=== PATIENT | male | born 1960 | race Caucasian/White ===

== ENCOUNTER 2016-12-17 11:48 | Emergency (ER) | payer OTHER ==
[~2016-12-17] VITALS: Ht 172.7 cm; Wt 88.5 kg
[~2016-12-17 11:48] MED LIST: INDOCIN25 MG PO; INDOCIN50 MG PO; NAPROSYN500 MG PO; NO DAILY MEDS; POLYTRIM 1000010 ML OPH; VICODIN 5/500 505 MG PO; Vicodin 5/500 505 MG PO
[2016-12-17] MEDS ORDERED: LEVOTHYROXIN0.075 M1 PO (12:04)
[2016-12-17] MEDS ORDERED: AMOXICILLIN500 M2 PO (12:04)
[2016-12-17] MEDS ORDERED: MELOXICAM7.5 MG PO (12:04)
[2016-12-17] MEDS ORDERED: CYCLOBENZAPRINE5 M3 PO (14:43)
== END 2016-12-17 14:47 | disposition home or self-care (01) ==
LOC: ED 11:48
DX: M54.5 Low back pain (principal); F17.200 Nicotine dependence, unspecified, uncomplicated; Z88.1 Allergy status to other antibiotic agents

== ENCOUNTER → 2018-11-29 | Outpatient (CLI) | payer OTHER ==
[~2018-11-29] MED LIST changes: +AMOXICILLIN500 M2 PO; +CYCLOBENZAPRINE5 M3 PO; +LEVOTHYROXIN0.075 M1 PO; +MELOXICAM7.5 MG PO
[2018-11-29 08:46] LABS: BASO % 0.5 % (0.0-1.0); EOS # 0.2 10*3/uL (0.0-0.4); EOS % 2.6 % (1.0-4.0); HEMATOCRIT 48.2 % (42.0-52.0); HEMOGLOBIN 16.3 g/dl (14.0-18.0); LYMPH % 26.6 % (27.0-41.0); MEAN CELL VOLUME 95.8 fl (80.0-94.0); MEAN CORPUSCULAR HGB 32.4 pg (27.0-31.0); MEAN CORPUSCULAR HGB CONC 33.8 g/dl (33.0-37.0); MEAN PLATELET VOLUME 10.8 fl (9.6-12.3); MONO # 0.5 10*3/uL (0.1-1.0); MONO % 6.7 % (3.0-9.0); NEUT # 4.8 10*3/uL (2.3-7.9); NEUT % 63.2 % (47.0-73.0); PLATELET COUNT AUTOMATED 205 10*3/uL (130-400); RED BLOOD COUNT 5.03 10*6/uL (4.50-5.90); RED CELL DISTRI WIDTH 11.7 % (0-14.5); WHITE BLOOD COUNT 7.6 10*3/uL (4.8-10.8)
[2018-11-29 09:13] LABS: BUN 12 mg/dl (7-24)
[2018-11-29 09:14] LABS: ALBUMIN 4.1 gm/dl (3.1-4.5); ALKALINE PHOSPHATASE 81 U/L (45-117); CHLORIDE 108 mmol/L (98-107); CHOLESTEROL 176 mg/dL (<200); HDL CHOLESTEROL 54 mg/dl (40-60); LDL CHOLESTEROL 108 mg/dL (9-159); POTASSIUM 4.7 mmol/L (3.5-5.1); SGOT/AST 18 IU/L (3-35); SGPT/ALT 34 U/L (12-78); SODIUM 142 mmol/L (136-145); TOTAL PROTEIN 7.8 gm/dL (6.4-8.2); TRIGLYCERIDES 68 mg/dl (<150); VLDL CHOLESTEROL 14 mg/dL (6-40)
[2018-11-29 09:34] LABS: FREE T4 0.91 ng/dl (0.76-1.46)
== END | disposition home or self-care (01) ==
LOC: LAB 08:20
PROVIDERS: Internal Medicine
DX: Z13.9 Encounter for screening, unspecified (principal); T14.8XXA Other injury of unspecified body region, initial encounter; E03.9 Hypothyroidism, unspecified; I10 Essential (primary) hypertension; X58.XXXA Exposure to other specified factors, initial encounter; Y93.89 Activity, other specified; Y92.89 Other specified places as the place of occurrence of the external cause; Y99.8 Other external cause status

== ENCOUNTER → 2018-12-04 | Outpatient (CLI) | payer OTHER | END | disposition home or self-care (01) | LOC: RESCLI 09:18 | DX: I10 Essential (primary) hypertension (principal); E03.9 Hypothyroidism, unspecified; M19.90 Unspecified osteoarthritis, unspecified site ==

== ENCOUNTER → 2019-03-24 | Outpatient (CLI) | payer OTHER | END | disposition home or self-care (01) | LOC: RESCLI 00:10 | DX: M19.90 Unspecified osteoarthritis, unspecified site (principal); I10 Essential (primary) hypertension; E03.9 Hypothyroidism, unspecified; Z72.0 Tobacco use; Z79.899 Other long term (current) drug therapy; Z88.8 Allergy status to other drugs, medicaments and biological substances ==

== ENCOUNTER → 2019-05-01 | Outpatient (CLI) | payer OTHER | END | disposition home or self-care (01) | LOC: RESCLI 00:36 | DX: Z13.9 Encounter for screening, unspecified (principal); E03.9 Hypothyroidism, unspecified; I10 Essential (primary) hypertension; M19.90 Unspecified osteoarthritis, unspecified site; Z79.899 Other long term (current) drug therapy ==

== ENCOUNTER → 2019-06-02 | Outpatient (CLI) | payer OTHER ==
[2019-06-02 09:02] LABS: BASO # 0.1 10*3/uL (0.0-0.1); BASO % 0.9 % (0.0-1.0); EOS # 0.2 10*3/uL (0.0-0.4); HEMATOCRIT 47.4 % (42.0-52.0); HEMOGLOBIN 15.9 g/dl (14.0-18.0); LYMPH # 2.7 10*3/uL (1.3-4.4); LYMPH % 34.4 % (27.0-41.0); MEAN CELL VOLUME 97.1 fl (80.0-94.0); MEAN CORPUSCULAR HGB 32.6 pg (27.0-31.0); MEAN CORPUSCULAR HGB CONC 33.5 g/dl (33.0-37.0); MEAN PLATELET VOLUME 11.5 fl (9.6-12.3); MONO # 0.7 10*3/uL (0.1-1.0); MONO % 9.5 % (3.0-9.0); NEUT % 51.7 % (47.0-73.0); PLATELET COUNT AUTOMATED 194 10*3/uL (130-400); RED BLOOD COUNT 4.88 10*6/uL (4.50-5.90); RED CELL DISTRI WIDTH 11.9 % (0-14.5); WHITE BLOOD COUNT 7.8 10*3/uL (4.8-10.8)
[2019-06-02 09:35] LABS: ALKALINE PHOSPHATASE 69 U/L (45-117); BUN 24 mg/dl (7-24); CHLORIDE 104 mmol/L (98-107); CREATININE 0.96 mg/dL (0.70-1.30); POTASSIUM 4.2 mmol/L (3.5-5.1); SGOT/AST 24 IU/L (3-35); SGPT/ALT 49 U/L (12-78); SODIUM 138 mmol/L (136-145); TOTAL PROTEIN 7.2 gm/dL (6.4-8.2)
[2019-06-02 10:03] LABS: FREE T4 1.15 ng/dl (0.76-1.46)
== END | disposition home or self-care (01) ==
LOC: LAB 08:23
PROVIDERS: Internal Medicine
DX: I10 Essential (primary) hypertension (principal); E03.9 Hypothyroidism, unspecified

== ENCOUNTER → 2019-06-03 | Outpatient (CLI) | payer OTHER | END | disposition home or self-care (01) | LOC: RESCLI 01:21 | DX: Z23 Encounter for immunization (principal); E03.9 Hypothyroidism, unspecified; I10 Essential (primary) hypertension; M19.90 Unspecified osteoarthritis, unspecified site; F17.210 Nicotine dependence, cigarettes, uncomplicated; Z12.11 Encounter for screening for malignant neoplasm of colon; Z79.899 Other long term (current) drug therapy ==

== ENCOUNTER → 2019-08-12 | Outpatient (CLI) | payer OTHER | END | disposition home or self-care (01) | LOC: RESCLI 00:31 | DX: Z13.9 Encounter for screening, unspecified (principal); E03.9 Hypothyroidism, unspecified; M19.90 Unspecified osteoarthritis, unspecified site; I10 Essential (primary) hypertension; L91.8 Other hypertrophic disorders of the skin; Z79.899 Other long term (current) drug therapy; F17.200 Nicotine dependence, unspecified, uncomplicated; Z88.1 Allergy status to other antibiotic agents ==

== ENCOUNTER → 2019-09-01 | Outpatient (CLI) | payer OTHER ==
[2019-09-01 10:30] LABS: FREE T4 0.82 ng/dl (0.76-1.46)
[2019-09-01 10:49] LABS: VITAMIN D, 25-HYDROXY 29.4 ng/mL (30-100)
== END | disposition home or self-care (01) ==
LOC: LAB 09:09
PROVIDERS: Internal Medicine
DX: Z13.9 Encounter for screening, unspecified (principal); E03.9 Hypothyroidism, unspecified

== ENCOUNTER → 2019-09-16 | Outpatient (CLI) | payer OTHER | END | disposition home or self-care (01) | LOC: RESCLI 00:24 | DX: M19.90 Unspecified osteoarthritis, unspecified site (principal); I10 Essential (primary) hypertension; E03.9 Hypothyroidism, unspecified; E78.5 Hyperlipidemia, unspecified; Z72.0 Tobacco use; M10.9 Gout, unspecified; Z79.899 Other long term (current) drug therapy ==

== ENCOUNTER → 2023-08-22 | Outpatient (CLI) | payer OTHER | END | disposition home or self-care (01) | LOC: US 12:50 | PROVIDERS: ATTEND Nurse Practitioner Family | DX: E03.9 Hypothyroidism, unspecified (principal) ==

== ENCOUNTER 2025-06-12 15:23 | Emergency (ER) | payer OTHER ==
[~2025-06-12] VITALS: Ht 170.1 cm; Wt 70.3 kg
[2025-06-12] MEDS ORDERED: ZESTORETIC 10-1 EACH PO (15:46)
[2025-06-12] MEDS ORDERED: LEVOTHYROXINE150 MCG PO (15:47)
[2025-06-12] MEDS ORDERED: MELOXICAM15 MG PO (15:47)
[2025-06-12] MEDS ORDERED: CLINDAMYCIN HC300 MG PO (16:56)
[2025-06-12] MEDS ORDERED: NAPROSYN500 MG PO (16:56)
[2025-06-12] MEDS ORDERED: Acetaminophen/Hydrocodone Bi 3 TAB PACK PO PRN (17:05)
== END 2025-06-12 17:18 | disposition home or self-care (01) ==
LOC: ED 15:23
DX: M71.021 Abscess of bursa, right elbow (principal); Z88.1 Allergy status to other antibiotic agents; Z79.899 Other long term (current) drug therapy

== ENCOUNTER 2025-06-15 13:17 | Emergency (ER) | payer OTHER ==
[~2025-06-15] VITALS: Ht 170.1 cm; Wt 72.6 kg
[~2025-06-15 13:17] MED LIST changes: +CLINDAMYCIN HC300 MG PO; +LEVOTHYROXINE150 MCG PO; +MELOXICAM15 MG PO; +ZESTORETIC 10-1 EACH PO
== END 2025-06-15 15:35 | disposition home or self-care (01) ==
LOC: ED 13:17
DX: Z48.00 Encounter for change or removal of nonsurgical wound dressing (principal); M10.9 Gout, unspecified; Z88.1 Allergy status to other antibiotic agents

== ENCOUNTER → 2025-06-18 | Outpatient (CLI) | payer OTHER | LOC: WOUNDCARE 04:44 | PROVIDERS: ATTEND Nurse Practitioner Family | DX: L02.413 Cutaneous abscess of right upper limb (principal); L03.90 Cellulitis, unspecified; I10 Essential (primary) hypertension; M71.121 Other infective bursitis, right elbow; F17.200 Nicotine dependence, unspecified, uncomplicated; F12.90 Cannabis use, unspecified, uncomplicated ==

== ENCOUNTER → 2025-06-21 | Outpatient (CLI) | payer OTHER | END | disposition home or self-care (01) | LOC: WOUNDCARE 01:35 | PROVIDERS: ATTEND Nurse Practitioner Family | DX: L02.413 Cutaneous abscess of right upper limb (principal); M71.121 Other infective bursitis, right elbow; L03.113 Cellulitis of right upper limb; M10.9 Gout, unspecified; I10 Essential (primary) hypertension; F17.200 Nicotine dependence, unspecified, uncomplicated; F12.90 Cannabis use, unspecified, uncomplicated ==

== ENCOUNTER → 2025-06-23 | Outpatient (CLI) | payer OTHER | END | disposition home or self-care (01) | LOC: WOUNDCARE 01:21 | PROVIDERS: ATTEND Nurse Practitioner Family | DX: L02.413 Cutaneous abscess of right upper limb (principal); M71.121 Other infective bursitis, right elbow; L03.113 Cellulitis of right upper limb; I10 Essential (primary) hypertension; M10.9 Gout, unspecified; F17.200 Nicotine dependence, unspecified, uncomplicated; F12.90 Cannabis use, unspecified, uncomplicated ==

== ENCOUNTER → 2025-06-25 | Outpatient (CLI) | payer OTHER | END | disposition home or self-care (01) | LOC: WOUNDCARE 00:45 | PROVIDERS: ATTEND Nurse Practitioner Family | DX: L02.413 Cutaneous abscess of right upper limb (principal); M71.121 Other infective bursitis, right elbow; L03.113 Cellulitis of right upper limb; I10 Essential (primary) hypertension; F17.200 Nicotine dependence, unspecified, uncomplicated; F12.90 Cannabis use, unspecified, uncomplicated ==

== ENCOUNTER → 2025-06-29 | Outpatient (CLI) | payer OTHER | END | disposition home or self-care (01) | LOC: WOUNDCARE 03:11 | PROVIDERS: ATTEND Nurse Practitioner Family | DX: L02.413 Cutaneous abscess of right upper limb (principal); M71.121 Other infective bursitis, right elbow; L03.114 Cellulitis of left upper limb; I10 Essential (primary) hypertension; F17.200 Nicotine dependence, unspecified, uncomplicated; F12.90 Cannabis use, unspecified, uncomplicated ==

== ENCOUNTER → 2025-07-07 | Outpatient (CLI) | payer OTHER | END | disposition home or self-care (01) | LOC: WOUNDCARE 08:04 | PROVIDERS: ATTEND Nurse Practitioner Family | DX: L02.413 Cutaneous abscess of right upper limb (principal); M71.121 Other infective bursitis, right elbow; L03.90 Cellulitis, unspecified; I10 Essential (primary) hypertension; M10.9 Gout, unspecified; F17.200 Nicotine dependence, unspecified, uncomplicated; F12.90 Cannabis use, unspecified, uncomplicated ==

== ENCOUNTER → 2025-07-08 | Day surgery (SDC) | payer OTHER ==
[2025-07-05 09:22] LABS: BUN 21 mg/dl (9-23)
[~2025-07-08] VITALS: Ht 172.7 cm; Wt 74.8 kg
[~2025-07-08] MED LIST changes: +ACETAMINOPHEN 100 ML IV ONE; +Lactated Ringer's Solution 1,000 ML IV ONE; +Lidocaine Hydrochloride 30 ML VIAL ONE; +Lidocaine Hydrochloride 5 ML VIAL IV ONE; +Midazolam Hydrochloride 2 MG/2 ML VIAL IV ONE; +Ondansetron Hydrochloride 4 MG/2 ML VIAL IV ONE; +PROPOFOL 200 MG/20 ML VIAL IV ONE
[2025-07-08 08:45] VITALS: BP 125/74
[2025-07-08 11:01] VITALS: BP 97/67
[2025-07-08 11:16] VITALS: BP 115/72
[2025-07-08 11:31] VITALS: BP 117/68
[2025-07-10 15:07] LABS: ACID FAST SPEC PROCESSING Tissue Grinding (.)
== END | disposition home or self-care (01) ==
LOC: SDC 07-06 08:45
PROVIDERS: ATTEND Orthopaedic Surgery
DX: M70.21 Olecranon bursitis, right elbow (principal); M1A.0211 Idiopathic chronic gout, right elbow, with tophus (tophi); I10 Essential (primary) hypertension; E03.9 Hypothyroidism, unspecified; F17.200 Nicotine dependence, unspecified, uncomplicated; F12.90 Cannabis use, unspecified, uncomplicated; Z79.899 Other long term (current) drug therapy; Z88.8 Allergy status to other drugs, medicaments and biological substances